=== PATIENT | female | born 1955 | race Caucasian/White ===

== ENCOUNTER 2016-10-15 18:30 | Inpatient (IN) | payer MEDICARE ==
[~2016-10-15] VITALS: Ht 165.1 cm; Wt 69.1 kg
[~2016-10-15 18:30] MED LIST: ANST1T PO; CITA10TA9 PO; Docusate Sodium PO; HYDR-656 PO; LEVO500T16 PO; LEVO75TA4 PO; METR500T PO; OXYC5TAB72 PO; PANT20TA2 PO; POTA20TA16 PO; QUET25TA73 PO; SENN176S PO
[2016-10-15 18:46] VITALS: BP 129/74; PULSE 115; RESP 24; O2SAT 98
[2016-10-15] MEDS ORDERED: 0.9% Sodium Chloride 1,000 ML IV ONE ×2 (19:36→21:15)
--- NOTE | 2016-10-15 19:36 | ED.REPORT ---
HPI-General Illness Date of Service Oct 15, 2016 ED Provider: Dr. Mina Welch D.O. A 61 year old female with an extensive medical history including active breast cancer on oral chemotherapy, Margie's thyroiditis with secondary encephalopathy, and hypertension presents to the ED with generalized myalgias onset four days ago. The patient also reports upper extremity joint pain, headache, chills, and fever (38.3 in ED). She denies diarrhea, vomiting, or dysuria. Her last chemotherapy appointment was one week ago. The patient was hospitalized for two weeks on 09/14/16 with a perforated colon where she underwent a left colon resection and end distal transverse colostomy. Nursing Notes Stated Complaint: JOINT/MUSCLE PAIN, FEVER/ HAD FREDDIE 1 WK AGO Chief Complaint: General Complaint Nursing Notes Reviewed: Yes Allergies: Coded Allergies: Contrast Media (Verified Allergy, Severe, Itching, 10/15/16) Oral Contrast Sulfa (Sulfonamide Antibiotics) (Verified Allergy, Unknown, HIVES, 10/15/16) zolpidem (Verified Allergy, Unknown, OTHER, 10/15/16) Scheduled Amlodipine (Amlodipine) 5 Mg Tablet 5 MG PO DAILY Anastrozole (Arimidex) 1 Mg Tablet 1 MG PO DAILY Levothyroxine (Levothyroxine) 75 Mcg Tablet 75 MCG PO DAILYAC Pantoprazole DR (Pantoprazole DR) 20 Mg Tablet.dr 20 MG PO DAILYAC Potassium Chloride ER (Potassium Chloride ER) 10 Meq Tablet 10 MEQ PO DAILY TAKE WITH FOOD Scheduled PRN hydrOXYzine Hcl (HydrOXYzine Hcl) 25 Mg Tablet 25 MG PO HS PRN PRN For Itching oxyCODONE (oxyCODONE) 5 Mg Tablet 2.5-5 MG PO Q4H PRN PRN FOR SEVERE PAIN Miscellaneous Medications Peg 3350/Na Sulf,Bicarb,Cl/KCl (Gavilyte-C Solution) 4,000 Ml Soln.recon 4,000 ML PO General Time Seen by MD: 19:35 Chief Complaint Other (Generalized Myalgias) Hx Obtained From: Patient Arrived By: Walk-in Onset Occurred: 4 days ago Symptom Duration: Since onset Location: : Abdomen: Arm left: Arm right: Back: Chest: Head Quality: Aching, Painful Severity: Current: Moderate Severity: Maximum: Moderate Associated with: Reports: Fever, Headache, Denies: Vomiting Pertinent Negative: Relieved by nothing Context Related History: Reports Cancer Recent Healthcare: Recent doctor visit, Recent hospitalization Past Medical History Past Medical History Hypothyroidism Diverticulitis. POD # 52 with ostomy that has pulled away from the skin into the subcutaneous tissues. Sepsis Embolic CVA Significant short-term memory loss Margie's thyroiditis with secondary encephalopathy several years Hypertension Breast cancer on oral chemotherapeutic 10/15/16 Peritonitis Perforated bowel Depression Anxiety Diastolic CHF Past Surgical History Left colon resection End distal transverse colostomy Smoking History Current Every Day Smoker Social History Alcohol Use: Denies alcohol use Other Social History: Good social support Ambulatory Status Independent Review of Systems Full Review of Systems Constitutional: Reports: Chills, Fever (38.3 in ED) GI: Denies: Diarrhea, Vomiting Female: Denies: Dysuria Musculoskeletal: Reports: Joint pain (Upper extremities), Myalgia (Generalized) Neurologic: Reports: Headache Complete sys rev & neg: except as marked. Physical Exam Vital Signs Vital Signs Date Time Temp Pulse Resp B/P Pulse Ox O2 Delivery O2 Flow Rate FiO2 10/16/16 01:34 37.9 111 33 143/44 99 Room Air 10/16/16 01:04 37.9 111 33 143/44 99 Room Air 10/15/16 23:30 39.4 122 26 145/72 91 Room Air 10/15/16 18:46 38.3 115 24 129/74 98 Room Air Initial VS: Reviewed Head / Eyes: Atraumatic, Normocephalic ENT: Conjunctiva normal, No scleral icterus Neck: Supple, Full range of motion Respiratory: Breath sounds normal, Clear to auscultation, No respiratory distress Skin: Warm, Dry, No cyanosis Neurologic: Alert, Oriented, Nonfocal General/Constitutional: Awake, Alert Behavior: Positive: Anxious Febrile Cardiovascular: Regular rhythm, Heart sounds NL Heart Rate / Rhythm: Positive: Tachycardia Interpretation & Diagnostics INFLUENZA NEGATIVE Lab Results Interpretation Result Diagram: 10/17/16 1110 10/17/16 1110 Test 10/15/16 19:30 10/15/16 20:40 10/16/16 00:44 10/16/16 01:25 Troponin T < 0.010ug/L (0.0-0.011) Pro-B-Type Natriuretic Peptide 454.0pg/mL (0-287) Lipase 11U/L (13-60) Procalcitonin 0.18ng/mL (0.00-0.08) Hold Brewer Top Tube Received (Received) Urine Color Yellow (YELLOW) Urine Appearance Clear (CLEAR,HAZY) Urine pH 6.0 (5.0-8.0) Urine Specific [place] 1.025 (1.003-1.035) Urine Protein Negativemg/dL (NEG,TRACE) Urine Glucose (UA) Negativemg/dL (NEGATIVE) Urine Ketones Negativemg/dL (NEGATIVE) Urine Occult Blood Negative (NEGATIVE) Urine Nitrite Negative (NEGATIVE) Urine Bilirubin Negative (NEGATIVE) Urine Urobilinogen Normalmg/dL (NORMAL) Urine Leukocyte Esterase Negative (NEGATIVE) Urine RBC 0-2/hpf (0-2) Urine WBC 0-5/hpf (0-5) Urine Epithelial Cells Occasional/hpf (NONE-MOD) Urine Crystals None seen (NONE SEEN) Urine Bacteria None/hpf (NONE-FEW) Urine Hyaline Casts None/lpf (NONE) Urine Granular Casts None seen (NONE SEEN) Urine Waxy Casts None seen (NONE SEEN) Urine Red Blood Cell Casts None seen (NONE SEEN) Urine White Blood Cell Casts None seen (NONE SEEN) Urine Mucus None seen (None Seen) Urine Trichomonas None seen (NONE SEEN) Urine Yeast None (NONE SEEN) Urinalysis Comment None Urine Culture Reflexed Not indicated Hold Urine Received (Received) Lactic Acid Level 0.8mmol/L (0.4-2.0) ECG Interpretation ECG Interpretation: Sinus tachycardia rate 104 Atrial premature complex Borderline repol abnormality, diffuse leads Time: 19:52 Interpreted by: ED physician X-Ray Chest Interpretation Chest Xray Interpretation: IMPRESSION: No acute cardiopulmonary disease process. Dictated by: Kimberley Diego MD, PhD on 10/15/2016 at 20:24 View: Portable, 1 view Interpretation / Wet Read by: Interpret - Radiologist CT Abd / Pelvis Interpretation CONCLUSION: Nonspecific enteritis affecting small bowel loops in the left abdomen with wall thickening and stranding. No bowel obstruction, perforation or abdominal pelvic abscess. Questionable appearance of the appendix with an appendicolith. Although this could be chronic, changes of an early appendicitis could appear similar. There were no comparison images or reports available to me at the time of this interpretation however if they do become available to me I will create an amendment to the report after comparison. Findings discussed w/ Dr. Welch at 10/15/16 11:17:42 PM PST Report transmitted to ED by Jordan Alas D.O at 10/15/16 - 11:21:08 PM [facility] Study type: Abdominal CT IV contrast, Abdom CT oral contrast Interpretation / Wet Read by: Interpret - Radiologist Re-Eval/Medical Decision Med Decision/Clinical Course 61-year-old complex medical patient presents with several days of joint pain and fever and rigors. She is undergoing immunotherapy so her oncologist recommended ER evaluation. On my evaluation she is febrile and tachycardic. She was a very poor historian secondary to memory loss. She was ill in appearance. I was concerned for a sepsis syndrome so we aggressively worked her up. She took care of her back in August when she had a perfect colon. Chest x-ray was negative for pneumonia. Urine analysis did not look infected. White blood cell count was normal. She was fluid resuscitated and symptomatically treated. She continued to be febrile having shaking chills. Went ahead and CT her abdomen due to her risk. There is mild nonspecific enteritis however there is also the possibility of early appendicitis. Perform serial examinations and pushed in her right lower quadrant several times and I could not elicit any tenderness. Medics exactly sure what is wrong with Cindy but I am certain she needs be admitted. I think it most appropriate that she be admitted to the medical team. I think were going to treat her with antibiotics and have surgical consultation. I did talk to Dr. Mota who concurs. I am going to treat her with IV Zosyn and fluids. I also spoke with her oncologist who agrees completely with the plan. Source of Hx: Old records Time of Eval: 21:12 Patient Status: Condition improved Re-Evaluation/Progress Note: Patient rechecked. Discussed plan for CT with patient. Time of Eval: 23:35 Patient Status: Condition improved Re-Evaluation/Progress Note: Patient rechecked. Time of Eval: 23:58 Patient Status: Condition improved Re-Evaluation/Progress Note: Discussed with patient CT, x-ray, and lab results, diagnosis, and plan for admit. Patient agrees with plan for care and all questions were addressed. Consultation #1: Referral / Consult Name: Brian Mota MD Consulted With: Surgeon Call Returned at: 23:42 [employer]ographic Press Set Up Operator: Will see patient, Agrees with eval, Agrees with plan Note: Will consult Consultation #2: Referral / Consult Name: Catrachito Muller MD Consulted With: Hospitalist Call Returned at: 23:49 [employer] Press Set Up Operator: Agrees with eval, Agrees with plan, Accepts admit Consultation #3: Consulted With: Ski Production Supervisor (And Oncologist) Call Returned at: 00:20 [employer] Press Set Up Operator: Agrees with eval, Agrees with plan Note: Dr. Neel Villalpando M.D. [phone] Counseled Regarding: Diagnosis, Lab results, Need for admission Discharge & Departure Primary Impression: Sepsis Sepsis type: sepsis due to unspecified organism Qualified Code: A41.9 - Sepsis, unspecified organism Additional Impressions: Enteritis Fever Fever type: unspecified Qualified Code: R50.9 - Fever, unspecified Tachycardia Disposition: ADMITTED TO HOSPITAL Discharge Condition All VS Reviewed: Yes Condition: Stable Referrals: [facility] (PCP) Scribe Attestation Portions of this note were transcribed by Denisse Spicer. I, Dr. Welch, personally performed the history, physical exam, and medical decision-making; I reviewed and confirmed the accuracy of the information in the transcribed note. Signed by: Jackie Damon, 10/16/2016, 00:57 copies to: [facility] Mina Welch DO Oct 15, 2016 19:36 DENISSE SPICER Oct 15, 2016 20:15 Time of Eval: 21:12 Patient Status: Condition improved Re-Evaluation/Progress Note: Patient rechecked. Discussed plan for CT with patient. Time of Eval: 23:35 Patient Status: Condition improved Re-Evaluation/Progress Note: Patient rechecked. Time of Eval: 23:58 Patient Status: Condition improved Re-Evaluation/Progress Note: Discussed with patient CT, x-ray, and lab results, diagnosis, and plan for admit. Patient agrees with plan for care and all questions were addressed. Consultation #1: Referral / Consult Name: Brian Mota MD Consulted With: Surgeon Call Returned at: 23:42 Flexographic Press Set Up Operator: Will see patient, Agrees with eval, Agrees with plan Note: Will consult Consultation #2: Referral / Consult Name: Catrachito Muller MD Consulted With: Hospitalist Call Returned at: 23:49 Flexographic Press Set Up Operator: Agrees with eval, Agrees with plan, Accepts admit Consultation #3: Consulted With: Ski Production Supervisor (And Oncologist) Call Returned at: 00:20 Flexographic Press Set Up Operator: Agrees with eval, Agrees with plan Note: Dr. Neel Villalpando M.D. [phone] Counseled Regarding: Diagnosis, Lab results, Need for admission Discharge & Departure Primary Impression: Sepsis Sepsis type: sepsis due to unspecified organism Qualified Code: A41.9 - Sepsis, unspecified organism Additional Impressions: Enteritis Fever Fever type: unspecified Qualified Code: R50.9 - Fever, unspecified Tachycardia Disposition: ADMITTED TO HOSPITAL Discharge Condition All VS Reviewed: Yes Condition: Stable Referrals: [facility] (PCP) Scribe Attestation Portions of this note were transcribed by Denisse Spicer. I, Dr. Welch, personally performed the history, physical exam, and medical decision-making; I reviewed and confirmed the accuracy of the information in the transcribed note. Signed by: Jackie Damon, 10/16/2016, 00:57 copies to: [facility] Mina Welch DO Oct 15, 2016 19:36 DENISSE SPICER Oct 15, 2016 20:15
[2016-10-15 19:46] LABS: BASOPHILS % (AUTO) 0.2 % (0-3); EOSINOPHILS % (AUTO) 3.8 % (0-5); MONOCYTES % (AUTO) 4.7 % (4-12); Mean Corpuscular Hemoglobin 30.1 pg (27.0-35.0); Mean Corpuscular Volume 92.5 fL (81-100); NEUTROPHILS % (AUTO) 80.9 % (40-74); Platelet Count 177 bil/L (150-400)
[2016-10-15] MEDS: HYDROmorphone 0.5 mg/0.5 mL iSecure Syringe IVPUSH PRN ×2 (20:14→21:35)
[2016-10-15] MEDS: Ondansetron 2 mg/mL 2 mL Inj IVPUSH PRN (20:14)
[2016-10-15 20:22] LABS: TROPONIN T < 0.010 ug/L (0.0-0.011)
--- NOTE | 2016-10-15 20:27 | DRSVH ---
PROCEDURE: X-RAY CHEST ONE VIEW, PORTABLE ([id number]) INDICATIONS: fever TECHNIQUE: One view of the chest was acquired. COMPARISON: [facility], CR, XR CHEST 1VW (PORTABLE), 08/20/2016, 5:47. [facility], CR, XR CHEST 1VW (PORTABLE), 08/16/2016, 4:12. [facility], CR, XR CHEST 1VW (POR TABLE), 08/22/2016, 9:11. FINDINGS: Surgical changes and devices: None. Lungs and pleura: No pleural effusions or pneumothorax. Lungs are clear of acute opacities. Scarrin g in the left lung base is unchanged. Mediastinum: Mediastinal contours appear normal. Heart size is normal. Bones and chest wall: Chronic left rib fractures are stable in appearance. No suspicious bony lesio ns. Overlying soft tissues appear unremarkable. IMPRESSION: No acute cardiopulmonary disease process. Dictated by: Kimberley Diego MD, PhD on 10/15/2016 at 20:24 Approved by: Kimberley Diego MD, PhD on 10/15/2016 at 20:25
[2016-10-15 20:55] LABS: APPEARANCE,URINE CLEAR (CLEAR,HAZY); COLOR,URINE YELLOW (YELLOW); OCCULT BLOOD,URINE NEGATIVE (NEGATIVE); UROBILINOGEN,URINE NORMAL (NORMAL)
[2016-10-15] MEDS ORDERED: Iohexol 300 mg/mL 30 mL Inj PO ONE (21:15)
[2016-10-15 23:30] VITALS: BP 145/72; PULSE 122; RESP 26; O2SAT 91
[2016-10-15] MEDS ORDERED: 0.9% Sodium Chloride 1,000 ML IV SCH (23:35)
[2016-10-16] VITALS (10 sets, daily range): BP systolic 94–150; BP diastolic 44–77; PULSE 86–116; RESP 18–40; O2SAT 92–100
[2016-10-16] MEDS: Ondansetron 2 mg/mL 2 mL Inj IVPUSH PRN (00:01)
[2016-10-16] MEDS: HYDROmorphone 0.5 mg/0.5 mL iSecure Syringe IVPUSH PRN (00:01)
[2016-10-16] MEDS ORDERED: Piperacillin-Tazo 3.375 Gm Inj 3.375 GM in Dextrose 5% Minibag Plus 50 ML IV SCH (00:30)
[2016-10-16] MEDS ORDERED: Polyethylene Glycol (PEG) 17 Gm Powder PO PRN (00:45)
[2016-10-16] MEDS ORDERED: Alum-Mag Hydrox-Simeth 30 mL Suspension PO PRN (00:45)
[2016-10-16] MEDS ORDERED: Ondansetron 2 mg/mL 2 mL Inj IVPUSH PRN (00:45)
--- NOTE | 2016-10-16 01:40 | PCM.HPMED ---
Subjective Date of Service Oct 16, 2016 Primary Provider: Admitting Physician: Primary Care Physician: [facility] Attending Physician: Chief Complaint: Myalgias History of Present Illness: Patient is a 61 year old female with a history of hypothyroidism, hypertension, and metastatic breast cancer. She presented to [facility] on 10/15/16 with her sister after about 4 days of joints aches and pains. At first the patient thought these were related to changes in the weather and more or less ignored them. Yesterday the patient had a low grade fever which became subjectively higher today. She denies chills, cough, sore throat, SOB, chest pain, nausea, vomiting, diarrhea, dysuria, hematuria, abdominal pain. She has had no increase in her usual level of fatigue. Her appetite is generally poor and has not been worse. Her last chemo session was October 08, 2016. She does not get neupogen after chemo on her current regimen. Myalgias can be an after affect of this chemo regimen but the oncologist thought it would be unusual for them to have continued this long. At the time of this H&P patient reports most significant pain in her jaw and face. In the ED the patient has a temperature of 38.3, heart rate 115, respiratory rate 24, blood pressure 129/74, and O2 saturation of 98% on room air. Labs were unremarkable. Patient has a history of bowel perforation so CT abd/pelvis done. Possible early appendicitis seen. IV antibiotics started as well as IV fluids. General surgery called and recommended admission. Will be admitted for further management. Review of Systems: A comprehensive review of systems was conducted with the patient and found to be negative except as above in the history of present illness. Allergies Coded Allergies: Contrast Media (Verified Allergy, Severe, Itching, 10/15/16) Oral Contrast Sulfa (Sulfonamide Antibiotics) (Verified Allergy, Unknown, HIVES, 10/15/16) zolpidem (Verified Allergy, Unknown, OTHER, 10/15/16) Home Medications Per patient's sister: Amlodipine 5 mg daily Levothyroxine 75 mcg daily Potassium 20 mEq daily Anastrazole 1 mg daily Other unverified medications at time of last discharge from [facility] (08/26/16): Aspirin 81 mg daily Quetiapine 12.5 mg HS Protonix 20 mg daily Oxycodone 5 mg Q4H PRN pain Citalopram 10 mg daily Hydroxyzine 25 mg HS PRN itching PMH Hypothyroidism with history of Margie's encephalitis. Diverticulitis status post emergent Jodie's procedure (March 2016). Embolic CVA. Encephalitis. Significant short-term memory loss. Hypertension. Right breast cancer undergoing neoadjuvant chemotherapy and pending right-sided breast surgery. Colon perforation August 2016. Surgical History Laparoscopic Jodie's procedure with end colostomy (March 2016) Tonsillectomy (childhood) Hysterectomy Family History Mother and sister with history of ovarian cancer Social History Hx Alcohol Use: Yes (2 glasses of wine per day.) Hx Substance Use: No Hx Tobacco Use: Yes Smoking Status: Former Smoker (Used off and on throughout life and quit again 15 months ago) Living Arrangement: with Family Exam Vital Signs Vital Sign - Last Date Time Temp Pulse Resp B/P Pulse Ox O2 Delivery O2 Flow Rate FiO2 10/15/16 23:30 39.4 122 26 145/72 91 Room Air Intake and Output 10/15/16 10/15/16 10/16/16 Cumulative From/Thru 15:00 23:00 07:00 10/15/16 18:46 - 10/15/16 23:47 Intake Total 1000 ml 2000 ml 3000 ml Balance 1000 ml 2000 ml 3000 ml Intake IV Total 1000 ml 2000 ml 3000 ml Exam Alert and oriented x3 to current situation, mild distress and discomfort; difficulty answering questions about last few days Head atraumatic, normocephalic PERRLA, EOMI, sclera anicteric Mucus membranes moist, no oral thrush observed; difficult to open mouth secondary to pain in jaw No cervical lymphadenopathy, neck supple, nontender No JVD noted Cardiac tones regular rate and rhythm with no murmur appreciated Lungs clear to auscultation bilaterally with adequate respiratory effort RLQ, suprapubic abdominal tenderness, non-distended, normoactive bowel tones, soft Holden present Radial pulses normal and equivalent bilaterally, dorsalis pedis pulses normal and equivalent bilaterally No cyanosis, clubbing or edema No ulcerations/open wounds Cranial nerves appear to be fully intact, normal speech, patient can move upper and lower limbs grossly Lab and Diagnostics Result Diagram: 10/15/16192910/15/161929 X-Rays, CTs and MRIs Chest x-ray: IMPRESSION: No acute cardiopulmonary disease process. Dictated by: Kimberley Diego MD, PhD on 10/15/2016 at 20:24 CT abd/pelvis: Conclusion: Non-specific enteritis affecting small bowel loops in left abdomen with wall thickening and stranding. No bowel obstruction, preparation or abdominal pelvic abscess. Questionable appearance of appendix with an appendicolith. Although this could be chronic, changes of an early appendicitis could appear similar. There were no comparison images or reports available to me at the time of this interpretation however if they do become available to me I will create an amendment to the report after comparison. Jordan Alas, DO 10/15/16 11:17PM Assessment & Plan Patient is a 61 year old female with a history of hypothyroidism, hypertension, and metastatic breast cancer. She presented to [facility] on 10/15/16 with her sister after about 4 days of joints aches and pains. CT abd/pelvis shows possible acute appendicitis. Patient to be admitted for IV ABX, fluids, and consultation with general surgery. 1. Possible acute appendicitis, present on admission. - Patient developing RLQ, suprapubic tenderness on exam. CT findings not conclusive. - General surgery consulted by ED and agree to see patient tomorrow. - Patient will be NPO for possible surgery. - Will defer DVT prophylaxis at this time in preparation for possible surgery. - Zosyn started in ED and will plan to continue at this time. 2. Sepsis, acute, present on admission. - Criteria met: fever (38.3), tachycardia (115), tachypnea (24), presumed GI source. - Procalcitonin and lactate ordered and pending. - Blood cultures ordered and pending. - IV NS 125 ml/hr started. - Antibiotics to treat underlying infection as above. - Continue to monitor CBC. 3. Myalgias, acute, present on admission. - Concern for possible influenza. - Rapid swab negative. Will order viral PCR to verify. - Will not plan to continue Tamiflu at this time as no other symptoms to confer influenza. - Will have Tylenol and hydromorphone 1 mg IV push available for pain control. 4. Hypothyroidism, chronic, presume stable. - Continue levothyroxine 75 mcg daily. 5. Right breast cancer, chronic, presume stable. - Continue anastrazole 1 mg daily (to be ordered by pharmacy as it could not be found as Taboola order). 6. Hypertension, chronic, presume stable. - Continue amlodipine 5 mg daily. 7. Medication reconciliation: - List given by patient's sister appears incomplete based on discharge note . - Please verify patient's medications tomorrow with her preferred pharmacy or ask bottles be brought in by the sister. - Antacid available PRN. - Antiemetic available PRN. - Bowel regimen available PRN. Patient admitted under inpatient status with expected length of stay greater than 2 midnights for severity of present symptoms, complexities of treatment plan and risk for adverse events. PCP Dr. Lyle ([facility]) Oncologist: Dr. Rojas VTE Prophylaxis: SCDs Resuscitation Status: CPR: Attempt Resuscitation Attending Statement The patient was seen and examined together with Dr. Blackwell on 10/15 and I agree with the history, exam and plan as outlined in the note above. Rula Blackwell DO Oct 16, 2016 01:18 Catrachito Muller MD Oct 16, 2016 02:10
[2016-10-16] MEDS: 0.9% Sodium Chloride 1,000 ML IV SCH ×4 (02:21→18:43)
[2016-10-16 03:35] LABS: BASOPHILS % (AUTO) 0.1 % (0-3); EOSINOPHILS % (AUTO) 0.5 % (0-5); MONOCYTES % (AUTO) 2.2 % (4-12); Mean Corpuscular Hemoglobin 30.4 pg (27.0-35.0); Mean Corpuscular Volume 92.7 fL (81-100); NEUTROPHILS % (AUTO) 91.6 % (40-74); Platelet Count 151 bil/L (150-400)
[2016-10-16] MEDS: HYDROmorphone 1 mg/mL Inj IVPUSH PRN ×7 (03:49→23:05)
[2016-10-16 03:52] LABS: Magnesium 1.4 mg/dL (1.6-2.6); Phosphorus 2.8 mg/dL (2.5-4.9)
[2016-10-16] MEDS ORDERED: Magnesium Sulf 2 Gm/50mL Water 2 GM in IV Premix 1 EACH IV ONE (04:50)
[2016-10-16] MEDS ORDERED: Potassium Chloride Inj 30 MEQ in Dextrose 5% 250 ML IV ONE (04:50)
--- NOTE | 2016-10-16 05:35 | NUR ---
Admit/Pain/Labs Pt admitted to room 2006 a little after 0200, pt had Zosyn infusing at the time and ordered NS fluids also started. Pt A&Ox3 and aware of situation but is very forgetful. Admission done mostly by mixture of recall from pt's recent admission and pt interview, pt is poor historian and family not in room at the time. Unable to do med rec as pt is unable to verify meds, states sister would have updated med list. Sister not in room at this time. Pt pleasant and conversing, stated pain was "getting better" when first arrived. Pt c/o pain mostly in arms and especially in hands. Later pt stated pain at 8/10, mostly in hands. Given PRN Dilaudid w/ good effect intermittently. Pt woke easily w/ care interventions, would repeat the same questions and statements and ask if she received anything for pain. Pt was reassured she had and after last intervention has been sleeping and appears comfortable. Potassium and Mag low this morning, MD ordered replacement, infusing now.
[2016-10-16] MEDS: Sodium Chloride LOK Flush 10 mL Syringe IVFLUSH SCH ×2 (08:14→16:30)
--- NOTE | 2016-10-16 08:44 | DRSVH ---
PROCEDURE: CT ABDOMEN AND PELVIS WITH CONTRAST ([id number]) INDICATIONS: fever, tachycardia, recent bowel perforation TECHNIQUE: After the administration of oral and intravenous contrast, 5 mm thick sections acquired from the diap hragms to the symphysis. 5 mm thick coronal and sagittal reformats were performed. For radiation do se reduction, the following was used: automated exposure control, adjustment of mA and/or kV accordi ng to patient size. COMPARISON: [facility], CT, CT ABD PELVIS W CON, 08/25/2016, 10:31. [facility], CT, CT ABD PELVIS W CON, 08/18/2016, 12:05. [facility], CT, CT ABD PELVIS W CON, , 20:24. FINDINGS: Image quality: Excellent. ABDOMEN: Lung bases: Mild bibasilar atelectasis versus scarring is present. Opacities have decreased compared to the prior examination. Heart size is normal. Solid organs: Small right and left hepatic lobe low density foci are unchanged Liver and spleen are otherwise normal in size and enhancement. Gallbladder demonstrates a high density focus within its l umen. Biliary system is non-dilated. Pancreas enhances normally. No adrenal nodules. Kidneys are n ormal in size and enhancement, without hydronephrosis. Peritoneum and bowel: Stomach is within normal limits. There is mild thickening and distention invol ving small bowel is within the left hemiabdomen, which is decreased. Surrounding fat stranding is dec reased. The appendix is mildly prominent in size, measuring 9 mm short axis. There is slightly increa sed fat stranding surrounding the tip of the appendix. There is an ovoid high density focus measuring 10 mm within the cecum and/or appendiceal base. Left midabdominal colostomy is present. No free flu id or air. Nodes and vessels: No retroperitoneal or mesenteric adenopathy. Aorta and inferior vena cava are no rmal in caliber. Miscellaneous: No ventral hernias. PELVIS: Genitourinary: Bladder wall thickness is normal. Miscellaneous: No inguinal hernias or adenopathy. Bones: No suspicious bony lesions. No vertebral body compression fractures. IMPRESSION: 1. Decreased inflammation/infection involving the left shana-abdominal small bowel loops. 2. Possible mild/early appendicitis, with an associated appendicolith versus high density focus withi n the adjacent cecum. Close clinical followup with repeat imaging, if clinically warranted, is recomm ended. 3. Cholelithiasis. 4. Concordant with preliminary interpretation. Dictated by: Jitendra Rebolledo M.D. on 10/16/2016 at 8:20 Approved by: Jitendra Rebolledo M.D. on 10/16/2016 at 8:43
[2016-10-16] MEDS: Piperacillin-Tazo 3.375 Gm Inj 3.375 GM in Dextrose 5% Minibag Plus 50 ML IV SCH ×2 (10:06→16:47)
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
[2016-10-16] MEDS ORDERED: [UNRECOGNIZED DRUG - CODE] PO (11:56)
[2016-10-16] MEDS ORDERED: POTA10TA12 PO (11:56)
[2016-10-16] MEDS ORDERED: AMLO5TAB2 PO (11:56)
--- NOTE | 2016-10-16 14:45 | PCM.PNMED ---
Subjective Date of Service Oct 16, 2016 Subjective She notes severe short-term memory loss. She believes she has had some abdominal pain. I cannot really quantify or locate where that is. She also notes diffuse hand and other joint pain which is chronic. She denies any shortness of breath, or cough. She has an ostomy. She cannot really say if outputs been normal or less than normal. Exam Vital Signs Vital Sign - Last Date Time Temp Pulse Resp B/P Pulse Ox O2 Delivery O2 Flow Rate FiO2 10/16/16 11:56 37.1 95 18 104/61 95 Nasal Cannula 1.00 Intake and Output 10/15/16 10/15/16 10/16/16 Cumulative From/Thru 15:00 23:00 07:00 10/15/16 18:46 - 10/16/16 06:46 Intake Total 1000 ml 2658 ml 3658 ml Output Total 1400 ml 1400 ml Balance 1000 ml 1258 ml 2258 ml Intake Oral 0 ml 0 ml IV Total 1000 ml 2658 ml 3658 ml Output Urine Total 1400 ml 1400 ml Stool Total 0 ml 0 ml Exam She has fluent speech somewhat anxious in appearance. No distress. Anicteric sclera. Neck supple Lungs are clear, normal effort. Heart is regular without murmur gallop or rub Abdomen is somewhat distended with a ostomy and some output. There is no tenderness. Extremities or face edema. Pedal pulses. Skin is free of rash or lesions IVs and Medications Medications Reviewed: Medications were reviewed in detail Lab and Diagnostics Result Diagram: 10/16/165 10/16/16 0315 X-Rays, CTs and MRIs Chest x-ray: IMPRESSION: No acute cardiopulmonary disease process. Dictated by: Kimberley Diego MD, PhD on 10/15/2016 at 20:24 CT abd/pelvis: Conclusion: Non-specific enteritis affecting small bowel loops in left abdomen with wall thickening and stranding. No bowel obstruction, preparation or abdominal pelvic abscess. Questionable appearance of appendix with an appendicolith. Although this could be chronic, changes of an early appendicitis could appear similar. There were no comparison images or reports available to me at the time of this interpretation however if they do become available to me I will create an amendment to the report after comparison. Jordan Alas DO 10/15/16 11:17PM Assessment & Plan Patient is a 61 year old female with a history of hypothyroidism, hypertension, and metastatic breast cancer. She presented to [facility] on 10/15/16 with her sister after about 4 days of joints aches and pains. CT abd/pelvis shows possible acute appendicitis. Patient to be admitted for IV ABX, fluids, and consultation with general surgery. 1. Possible acute appendicitis, present on admission. We will continue Zosyn. Dr. Galvan surgery is reviewing the case to see whether not she believes surgical intervention is indicated today. 2. Sepsis, acute, present on admission., Improved. - Criteria met: fever (38.3), tachycardia (115), tachypnea (24), presumed GI source. - Procalcitonin and lactate ordered and pending. - Blood cultures ordered and pending. - IV NS 125 ml/hr started. - Antibiotics to treat underlying infection as above. - Continue to monitor CBC. 3. Myalgias, acute, present on admission. She appears to have chronic muscle skeletal complaints. - Concern for possible influenza. - Rapid swab negative. Will order viral PCR to verify. This was negative. 4. Hypothyroidism, chronic, presume stable. - Continue levothyroxine 75 mcg daily. 5. Right breast cancer, chronic, presume stable. - Continue anastrazole 1 mg daily (to be ordered by pharmacy as it could not be found as [employer] order). 6. Hypertension, chronic, presume stable. - Continue amlodipine 5 mg daily. Patient admitted under inpatient status with expected length of stay greater than 2 midnights for severity of present symptoms, complexities of treatment plan and risk for adverse events. PCP Dr. Lyle ([facility]) Oncologist: Dr. Rojas Pain Evaluation: Adequate Pain Control VTE Prophylaxis: SCDs VTE Mechanical Devices: Intermittant Pneumatic CD Resuscitation Status: CPR: Attempt Resuscitation Time spent 25 minutes Rashid Osullivan MD Oct 16, 2016 14:45
--- NOTE | 2016-10-16 17:30 | NUR ---
Pain/EKG No reports of chest pain, however patient does report continual bilateral arm pain and upper back pain -- MD aware, EKG completed shows prolonged QT and QTc-- in chart. Tele sinus/tachy high 90s to low 100s No reports of SOB at rest. RR 30-40 depending on pain level which varies 6-10/10 (administering Dilaudid 1mg IV PRN Q2), No reports of SOB, 94% on RA. No reports of n/v/d/c, reports mild abdominal pain, increases with movement. Holden patent draining yellow urine to gravity. Patient is alert and oriented x3, HERRERA, reports full sensation significant short term memory loss at baseline. Needs frequent cueing and reminding. Sits at edge of bed 1PA, very weak.
--- NOTE | 2016-10-16 18:00 | PROG NOTE ---
[address] [address] PROGRESS NOTE PATIENT: ROHIT MEDEIROS : 1955 MR#: [id number] ADMIT: 10/16/2016 JOB ID: [id number] DATE: 10/16/2016 SURGICAL PROGRESS NOTE: SUBJECTIVE: This is a 61-year-old woman with a past surgical history as follows: In April she presented with diverticulitis and underwent an emergent sigmoid colectomy with end-colostomy. This was complicated by intubation and a prolonged ICU stay, and her hospitalization was approximately two months long. Her ostomy strictured and although she was discharged and was able to tolerate a regular diet, in August her left colon became obstructed from that stricture and perforated. She then underwent and an emergent exploratory laparotomy with resection of the left colon and distal transverse colostomy. She was treated with IV antibiotics and actually recovered without the need for additional procedural intervention. She was admitted to the hospital last night and her notes describe four days of joint aches and pains. The patient has always been a poor personal historian due to her history of encephalitis (at one point she could not remember if she is able to walk). She was admitted and put on antibiotics. A CT scan of the abdomen and pelvis showed possible, but not probable or obvious, acute appendicitis. I personally reviewed her CT scan of the abdomen and pelvis with the radiologist. Although the appendix it is somewhat larger in caliber compared to normal, there is no periappendiceal fat stranding. There is a small radiopaque density in the cecum, which could be an appendicolith, but is not obviously seen at the appendiceal orifice. There is no sign of perforation or phlegmon. OBJECTIVE: Temperature 37.2, heart rate 102, blood pressure 96/60, respiratory rate of 20, saturation 92% on room air. General: Awake, alert. Confused per her baseline. Abdomen: Soft. Mild diffuse tenderness, most prominent in the left lower quadrant, right lower quadrant, and right upper quadrant. There is no rebound or guarding. LABORATORY STUDIES: White blood cell count was 6.5 on admission and 8.5 this morning. Hematocrit is 34.2 and platelets are 151. Basic metabolic panel is within normal limits, with the exception of potassium 3.2 and calcium 7.9. Pro B-natriuretic peptide is elevated at 454. IMAGING PROCEDURE: A CT scan of the abdomen and pelvis: Images are as noted above. ASSESSMENT: A 61-year-old woman with abdominal pain and CT scan findings which are equivocal for acute appendicitis. This patient has had an extensive past surgical history with extreme difficulty recovering as noted on previous hospitalizations. Her CT scan findings are equivocal for appendicitis, but somewhat concerning. She has a normal white blood cell count. She is on antibiotics. She has been undergoing chemotherapy, which was most recently administered on October 08, 2016 per her history and physical today. RECOMMENDATIONS: Given all of the above findings, I recommend institution of IV antibiotics and observation. This case was also discussed with my on-call partner, Dr. Ellis, who will also be covering over the weekend. If she does not show signs of improvement, or if her clinical picture worsens, either repeat imaging or appendectomy without imaging may be considered. She is at a very increased risk of morbidity from an operation given her past medical and surgical history. All of this was also discussed with Dr. Rashid Osullivan, her hospitalist. I also attempted to contact her DPOA, Mimi, who is her sister, but was unable to get her on the phone. This patient will be followed by the surgical service while she is in the hospital.
[2016-10-17] VITALS (8 sets, daily range): BP systolic 102–140; BP diastolic 56–74; PULSE 81–101; RESP 18–36; O2SAT 94–97
[2016-10-17] MEDS: Piperacillin-Tazo 3.375 Gm Inj 3.375 GM in Dextrose 5% Minibag Plus 50 ML IV SCH ×4 (00:01→23:44)
[2016-10-17] MEDS: Sodium Chloride LOK Flush 10 mL Syringe IVFLUSH SCH ×3 (00:30→17:46)
[2016-10-17] MEDS: HYDROmorphone 1 mg/mL Inj IVPUSH PRN ×8 (01:10→22:44)
[2016-10-17] MEDS: 0.9% Sodium Chloride 1,000 ML IV SCH ×3 (03:30→23:44)
--- NOTE | 2016-10-17 05:16 | NUR ---
Pain/Colostomy/Labs/Tele Pt continues to report bilateral arm pain, especially in hands/fingers, also reported back pain, per pt "in her usual spots" which were generalized upper and lower back, pt reports back pain is chronic. Pt also intermittently reported abdominal pain, though denied any nausea. PRN Dilaudid and Tylenol given w/ good effect. Pt woke early in night and stated pain at 8-9/10, after a few doses of pain medicine per orders, pt most recently reported pain to be at a 3/10 and tolerable, also reported no stomach pain but rather irritation to skin around colostomy. Colostomy changed and skin cleaned as pt itched around it and pulled it off. PRN benadryl and lotion used for itching. Colostomy put out minimal output. K/Mag not rechecked since replacement yesterday. informed that no morning labs were ordered and pt is not on protocol. No new orders given at this time. No significant ectopy noted on telemetry. Pt NPO per orders, except for PO meds.
--- NOTE | 2016-10-17 09:02 | PCM.PNMED ---
Subjective Date of Service Oct 17, 2016 Subjective She is having diffuse joint pain which is normal for her. This includes neck back and hands. Her abdomen still hurts. No nausea or diarrhea. She did have a fever last night. No chills. No chest pain or palpitations. She has chronic short-term memory loss. Exam Vital Signs Vital Sign - Last Date Time Temp Pulse Resp B/P Pulse Ox O2 Delivery O2 Flow Rate FiO2 10/17/16 07:37 37.9 97 36 111/67 95 Room Air 10/16/16 11:56 1.00 Intake and Output 10/16/16 10/16/16 10/17/16 Cumulative From/Thru 15:00 23:00 07:00 10/15/16 18:46 - 10/17/16 06:44 Intake Total 1398 ml 1491 ml 6547 ml Output Total 700 ml 800 ml 2900 ml Balance 698 ml 691 ml 3647 ml Intake Oral 0 ml 0 ml 0 ml IV Total 1398 ml 1491 ml 6547 ml Output Urine Total 700 ml 800 ml 2900 ml Stool Total 0 ml Exam She is calm and has fluent speech no distress Anicteric sclera Lungs are clear normal effort and rate Heart is regular without murmur gallop or rub Abdomen is diffusely tender without guarding or rebound. Extremities are free of edema good pedal pulses IVs and Medications Medications Reviewed: Medications were reviewed in detail Lab and Diagnostics Result Diagram: 10/16/1631410/16/16314 X-Rays, CTs and MRIs Chest x-ray: IMPRESSION: No acute cardiopulmonary disease process. Dictated by: Kimberley Diego MD, PhD on 10/15/2016 at 20:24 CT abd/pelvis: Conclusion: Non-specific enteritis affecting small bowel loops in left abdomen with wall thickening and stranding. No bowel obstruction, preparation or abdominal pelvic abscess. Questionable appearance of appendix with an appendicolith. Although this could be chronic, changes of an early appendicitis could appear similar. There were no comparison images or reports available to me at the time of this interpretation however if they do become available to me I will create an amendment to the report after comparison. Jordan Alas, DO 10/15/16 11:17PM Assessment & Plan Patient is a 61 year old female with a history of hypothyroidism, hypertension, and metastatic breast cancer. She presented to [facility] on 10/15/16 with her sister after about 4 days of joints aches and pains. CT abd/pelvis shows possible acute appendicitis. Patient to be admitted for IV ABX, fluids, and consultation with general surgery. 1. Possible acute appendicitis, present on admission. We will continue Zosyn. Dr. Galvan elected not to go to the OR last night. She is having persistent abdominal pain and fever. We will recheck a white count this morning. I suspect she will likely need to go for appendectomy. We will make her nothing by mouth. 2. Sepsis, acute, present on admission., Improved. - Criteria met: fever (38.3), tachycardia (115), tachypnea (24), presumed GI source. Plan is as above 3. Myalgias, acute, present on admission. She appears to have chronic muscle skeletal complaints. Is likely relates to her abdominal process and chronic muscular skeletal issues. - Concern for possible influenza. - Rapid swab negative. Will order viral PCR to verify. This was negative. 4. Hypothyroidism, chronic, presume stable. - Continue levothyroxine 75 mcg daily. 5. Right breast cancer, chronic and metastatic, presume stable. - Continue anastrazole 1 mg daily (to be ordered by pharmacy as it could not be found as [employer] order). 6. Hypertension, chronic, presume stable. - Continue amlodipine 5 mg daily. Patient admitted under inpatient status with expected length of stay greater than 2 midnights for severity of present symptoms, complexities of treatment plan and risk for adverse events. PCP Dr. Lyle ([facility]) Oncologist: Dr. Rojas Pain Evaluation: Adequate Pain Control VTE Prophylaxis: SCDs VTE Mechanical Devices: Intermittant Pneumatic CD Resuscitation Status: CPR: Attempt Resuscitation Time spent 30 minutes Rashid Osullivan MD Oct 17, 2016 09:02
--- NOTE | 2016-10-17 09:33 | PCM.PNSURG ---
Subjective Date of Service: Oct 17, 2016 Visit Information: Reason for Visit Sepsis,Tachycardia,Fever Surgery/Surgery Date Post-Op Day # Date of Admission: Oct 16, 2016 at 01:48 Hospital Day #3 Subjective: Vague mild left upper quadrant abdominal pain that has improved significantly since admission. Denies right upper quadrant or right lower quadrant pain. Denies nausea or vomiting. Believes that she is drinking liquids without difficulty, relates history of short-term memory loss. Passing flatus but has not had a bowel movement. Ambulatory in the room. Postop General: Other (as above) Gastrointestinal: Good Appetite, Tolerating Oral Feedings, No N/V, Passing Flatus Pain Management: PO Postop Activity: Ambulating in Room Only Objective Vital Sign- Last 8 Hours Date Time Temp Pulse Resp B/P Pulse Ox O2 Delivery O2 Flow Rate FiO2 10/17/16 08:00 101 10/17/16 07:37 37.9 97 36 111/67 95 Room Air 10/17/16 04:49 98 10/17/16 04:22 37.1 89 18 102/58 94 Room Air Intake and Output- Last 8 Hour 10/17/16 Cumulative From/Thru 07:00 10/15/16 18:46 - 10/17/16 06:44 Intake Total 1491 ml 6547 ml Output Total 800 ml 2900 ml Balance 691 ml 3647 ml Intake Oral 0 ml 0 ml IV Total 1491 ml 6547 ml Output Urine Total 800 ml 2900 ml Stool Total 0 ml General: Alert, Cooperative, No Acute Distress, Anicteric Lungs: Clear to Auscultation Heart: Regular Rate/Rhythm Abdomen: Soft, Non-tender (negative Philippe's), Non-distended Neuro: Normal Speech Catheters: None Result Diagram: 10/16/1631410/16/16314 Lab & Micro Results: Lipase 11 on admission Assessment & Plan Impression Primary diagnosis: 1. Abdominal pain that seems to be resolving with antibiotics. 2. Significant short-term memory loss Other diagnoses: 1. Hypothyroidism with history of Margie's encephalitis. 2. Diverticulitis status post emergent Jodie's procedure (March 2016). 3. History of Embolic CVA. 4. History of Encephalitis. 5. Hypertension. 6. Right breast cancer undergoing neoadjuvant chemotherapy and pending right -sided breast surgery. 7. Colon perforation August 2016. 8. Former cigarette smoker Problems: Plan Surgery will continue to follow, but at this point it is unlikely that there is a intra-abdominal process requiring surgical intervention. Pain Management: Oral Tylenol VTE Prophylaxis: SCDs Resuscitation Status: CPR: Attempt Resuscitation Galen Manriquez PA-C Oct 17, 2016 09:33
[2016-10-17 11:20] LABS: Mean Corpuscular Hemoglobin 29.8 pg (27.0-35.0); Mean Corpuscular Volume 93.4 fL (81-100)
--- NOTE | 2016-10-17 18:01 | NUR ---
Pain/Ambulation/Itching/Colostomy Patient alert and oriented x3, HERRERA, significant short term memory loss at baseline. Patient continues to report bilateral arm pain/hand pain, well managed by 1mg IV Dilaudid PRN Q2, pain level reported mostly at tolerable levels throughout shift at 2-5/10. Administered PO 650 my tylenol x2. Patient up SBA/soft 1PA, tolerated well. Continues to report urge to void despite putting over 2000ml out of stovall. Continues to itch, lotion applied to all extremities x3, IV Benadryl administered x2. Patient had pure liquid brown stool out of colostomy, unable to measure because she tends to pull/roll up dressing and caused liquid stool to leave over abdomen -- full bed bath. Still NPO, NS at 125, stovall patent, RA, vital signs within normal limits.
[2016-10-18] VITALS (8 sets, daily range): BP systolic 102–147; BP diastolic 67–77; PULSE 90–106; RESP 20–28; O2SAT 96–100
[2016-10-18] MEDS: Sodium Chloride LOK Flush 10 mL Syringe IVFLUSH SCH ×3 (00:30→16:30)
[2016-10-18] MEDS: HYDROmorphone 1 mg/mL Inj IVPUSH PRN ×6 (03:18→22:11)
--- NOTE | 2016-10-18 06:15 | NUR ---
Pain /Tele / VSS Pt medicated for abdomen and hand pain during the night with IV Dilaudid 1 mg about every 2 hours with good relief of pain. Pt medicated X2 for itching with IV Benadryl 25mg every 6 hours. No c/o chest pain, Tele SR with PACs with HR 90s to low 100s. VS stable and afebrile.
[2016-10-18] MEDS: Piperacillin-Tazo 3.375 Gm Inj 3.375 GM in Dextrose 5% Minibag Plus 50 ML IV SCH ×2 (08:42→17:39)
[2016-10-18] MEDS: 0.9% Sodium Chloride 1,000 ML IV SCH ×3 (08:42→22:06)
[2016-10-18 09:42] LABS: Mean Corpuscular Hemoglobin 29.7 pg (27.0-35.0); Mean Corpuscular Volume 92.4 fL (81-100)
--- NOTE | 2016-10-18 10:07 | NUR ---
MARY JANE signature witnessed - MARCUS OteroSW
--- NOTE | 2016-10-18 10:08 | NUR ---
Social Work Note - Continued D.C plan SELLING MANAGER met with Cindy Mccoy - Pt states that she plans to return home with sister at d/c. She states she is not feeling better. MD identifies that surgery is consulted for possible Appendicitis. May remain in the hospital for 1-2 more days. SELLING MANAGER placed POA paperwork on chart. Plan: Home with sister in POV. GEETA Otero
--- NOTE | 2016-10-18 12:03 | PCM.PNMED ---
Subjective Date of Service Oct 18, 2016 Subjective She is doing a little bit better today. No fever. Less abdominal pain. She still has severe anorexia. No bowel movement. She is urinating without difficulty, no burning or blood. No shortness of breath. Exam Vital Signs Vital Sign - Last Date Time Temp Pulse Resp B/P Pulse Ox O2 Delivery O2 Flow Rate FiO2 10/18/16 10:10 98 10/18/16 08:38 36.9 28 132/74 97 Room Air 10/16/16 11:56 1.00 Intake and Output 10/17/16 10/17/16 10/18/16 Cumulative From/Thru 15:00 23:00 07:00 10/15/16 18:46 - 10/18/16 06:06 Intake Total 2050 ml 1576 ml 24698 ml Output Total 2500 ml 3150 ml 8550 ml Balance -450 ml -1574 ml 1623 ml Intake Oral 0 ml 0 ml 0 ml IV Total 2050 ml 1576 ml 48559 ml Output Urine Total 2500 ml 2800 ml 8200 ml Stool Total 350 ml 350 ml Exam She is doing well. She is in no acute distress, fluent speech. Neck supple breath lungs are clear normal effort and rate Heart is regular without murmur Abdomen is soft nontender with exception of very minor tenderness in the right lower quadrant without guarding or rebound. Extremities are free of edema good pedal pulses. Skin is free of rash or lesions. IVs and Medications Medications Reviewed: Medications were reviewed in detail Lab and Diagnostics Result Diagram: 10/18/16 0700 10/18/16 0700 X-Rays, CTs and MRIs Chest x-ray: IMPRESSION: No acute cardiopulmonary disease process. Dictated by: Kimberley Diego MD, PhD on 10/15/2016 at 20:24 CT abd/pelvis: Conclusion: Non-specific enteritis affecting small bowel loops in left abdomen with wall thickening and stranding. No bowel obstruction, preparation or abdominal pelvic abscess. Questionable appearance of appendix with an appendicolith. Although this could be chronic, changes of an early appendicitis could appear similar. There were no comparison images or reports available to me at the time of this interpretation however if they do become available to me I will create an amendment to the report after comparison. Jordan Alas DO 10/15/16 11:17PM Assessment & Plan Patient is a 61 year old female with a history of hypothyroidism, hypertension, and metastatic breast cancer. She presented to [facility] on 10/15/16 with her sister after about 4 days of joints aches and pains. CT abd/pelvis shows possible acute appendicitis. Patient to be admitted for IV ABX, fluids, and consultation with general surgery. 1. Possible acute appendicitis, present on admission. We will continue Zosyn. She is currently being treated with IV antibiotics and surgery has been deferred. We will give her a full liquid diet today and consider repeat imaging Thursday or Thursday. 2. Sepsis, acute, present on admission., Resolved. - Criteria met: fever (38.3), tachycardia (115), tachypnea (24), presumed GI source. Plan is as above 3. Myalgias, acute, present on admission. She appears to have chronic muscle skeletal complaints. Is likely relates to her abdominal process and chronic muscular skeletal issues. The symptoms are improving. 4. Hypothyroidism, chronic, presume stable. - Continue levothyroxine 75 mcg daily. 5. Right breast cancer, chronic and metastatic, presume stable. - Continue anastrazole 1 mg daily (to be ordered by pharmacy as it could not be found as [email or web address] order). 6. Hypertension, chronic, presume stable. - Continue amlodipine 5 mg daily. Patient admitted under inpatient status with expected length of stay greater than 2 midnights for severity of present symptoms, complexities of treatment plan and risk for adverse events. PCP Dr. Lyle ([facility]) Oncologist: Dr. Rojas Pain Evaluation: Adequate Pain Control VTE Prophylaxis: SCDs VTE Mechanical Devices: Intermittant Pneumatic CD Resuscitation Status: CPR: Attempt Resuscitation Time spent 30 minute Rashid Osullivan MD Oct 18, 2016 12:03
--- NOTE | 2016-10-18 13:20 | PROG NOTE ---
[address] [address] PROGRESS NOTE PATIENT: ROHIT MEDEIROS : 1955 MR#: [id number] ADMIT: 10/16/2016 JOB ID: [id number] DATE: 10/18/2016 SUBJECTIVE: The patient is seen for surgery in followup for her recent admission for possible acute appendicitis. OBJECTIVE: Over the last 24 hours the patient has remained afebrile. This morning she is hemodynamically normal with a heart rate of 96 beats per minute, blood pressure of 126/71, satting 97% on room air, with a respiratory of 22 breaths per minute. In general, she appears very comfortable. Her abdomen is soft, nondistended. Her ostomy is functioning well. She has mild tenderness to palpation of the right lower quadrant. LABORATORY: Her white blood cell count remains normal at 4.7. Her hematocrit is 33.9. Her creatinine is fine at 0.57. ASSESSMENT AND PLAN: This is a 61-year-old female with an extensive medical history, who was admitted for fevers and CT scanning somewhat equivocal for the possibility of early acute appendicitis. The patient seems to be doing very well this morning. She is actually the best I have ever seen her. It is not clear to me whether or not that was a true diagnosis of acute appendicitis. Regardless, at this point I think transition to oral antibiotics and continue this for a minimum of a total 7-10 day course of antibiotic coverage is prudent. From my standpoint, she could even go home today. She has maintained normal white blood cell count and feels fine. I doubt that interval appendectomy will be offered, but she could follow up with Dr. Galvan. At this point, I am going to sign off. Please call me if there are any questions or concerns.
[2016-10-18] MEDS ORDERED: KCl 40 mEq/D5W 500 mL 40 MEQ in IV Premix 1 EACH IV ONE (13:55)
--- NOTE | 2016-10-18 17:58 | NUR ---
Colostomy Patient's colostomy dressing was coming undone following a shower; sister at bedside also states she often picks at the dressing as it itches. Student nurse and instructor replaced the colostomy bag and dressing at 1730 on 10/18.The stoma was pink, moist, and shiny. The skin surrounding the stoma was intact without erythema. No drainage, aside from stool, noted.
[2016-10-19] VITALS (9 sets, daily range): BP systolic 128–152; BP diastolic 78–98; PULSE 85–99; RESP 16–20; O2SAT 96–98
[2016-10-19] MEDS: Sodium Chloride LOK Flush 10 mL Syringe IVFLUSH SCH ×3 (00:30→16:45)
[2016-10-19] MEDS: Piperacillin-Tazo 3.375 Gm Inj 3.375 GM in Dextrose 5% Minibag Plus 50 ML IV SCH ×3 (00:49→18:28)
[2016-10-19 02:59] LABS: Mean Corpuscular Hemoglobin 30.1 pg (27.0-35.0); Mean Corpuscular Volume 89.3 fL (81-100)
[2016-10-19] MEDS ORDERED: Potassium Chloride 20 mEq/15 mL Oral Soln(K 3 - 3.7 & Creat < 2) PO ONE (04:50)
--- NOTE | 2016-10-19 05:54 | NUR ---
Pain/Potassium/Mentation Pt c/o pain in arms and legs 04/23 x2 this shift. Administered 1mg Dilaudid x2 and effective, no further complaints. AM K+ was 3.0 and Pt is on K+ Mag replacement protocol, ordered 40mEq PO. Will recheck K+ in 4 hours. 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 Pt has book at side of bed that helps her to remember where she is. VSS and Tele SR
[2016-10-19] MEDS: HYDROmorphone 1 mg/mL Inj IVPUSH PRN (06:19)
--- NOTE | 2016-10-19 06:39 | NUR ---
Holden Pt c/o Holden bothering her and causing pain, DC'd Holden @ 0038 as no evidence was found to keep Holden in place.
[2016-10-19] MEDS: 0.9% Sodium Chloride 1,000 ML IV SCH (08:35)
--- NOTE | 2016-10-19 13:16 | PCM.PNMED ---
Subjective Date of Service Oct 19, 2016 Subjective She is improving. Much less abdominal pain. She still has pronounced anorexia. No fevers or chills. No cough, chest pain or dyspnea. Diarrhea. Exam Vital Signs Vital Sign - Last Date Time Temp Pulse Resp B/P Pulse Ox O2 Delivery O2 Flow Rate FiO2 10/19/16 11:49 36.9 85 20 152/90 97 Room Air 10/16/16 11:56 1.00 Intake and Output 10/18/16 10/18/16 10/19/16 Cumulative From/Thru 15:00 23:00 07:00 10/15/16 18:46 - 10/19/16 06:39 Intake Total 1804 ml 1786 ml 01736 ml Output Total 2825 ml 1375 ml 68894 ml Balance -1021 ml 411 ml 1013 ml Intake Oral 400 ml 500 ml 900 ml IV Total 1404 ml 1286 ml 01244 ml Output Urine Total 2750 ml 1200 ml 46368 ml Stool Total 75 ml 175 ml 600 ml Exam Alert oriented 3, fluent speech Anicteric sclerae. Neck supple. Lungs are clear with normal effort. Heart is regular without murmur. Abdomen is soft nontender, ostomy is in place. Extremities are free of edema with good pedal pulses. IVs and Medications Medications Reviewed: Medications were reviewed in detail Lab and Diagnostics Result Diagram: 10/19/16 0235 10/19/16 0921 X-Rays, CTs and MRIs Chest x-ray: IMPRESSION: No acute cardiopulmonary disease process. Dictated by: Kimberley Diego MD, PhD on 10/15/2016 at 20:24 CT abd/pelvis: Conclusion: Non-specific enteritis affecting small bowel loops in left abdomen with wall thickening and stranding. No bowel obstruction, preparation or abdominal pelvic abscess. Questionable appearance of appendix with an appendicolith. Although this could be chronic, changes of an early appendicitis could appear similar. There were no comparison images or reports available to me at the time of this interpretation however if they do become available to me I will create an amendment to the report after comparison. Jordan Alas, 10/15/16 11:17PM Assessment & Plan Patient is a 61 year old female with a history of hypothyroidism, hypertension, and metastatic breast cancer. She presented to [facility] on 10/15/16 with her sister after about 4 days of joints aches and pains. CT abd/pelvis shows possible acute appendicitis. Patient to be admitted for IV ABX, fluids, and consultation with general surgery. 1. Possible acute appendicitis, present on admission. Appreciate Dr. Ellis's note. We will continue IV antibiotics through tomorrow repeat CT scan of the abdomen. If this looks improved we will discuss briefly with Dr. Galvan and likely discharge the patient on oral antibiotics. 2. Sepsis, acute, present on admission., Resolved. - Criteria met: fever (38.3), tachycardia (115), tachypnea (24), presumed GI source. Plan is as above 3. Myalgias, acute, present on admission. She appears to have chronic muscle skeletal complaints. Is likely relates to her abdominal process and chronic muscular skeletal issues. The symptoms are resolved. 4. Hypothyroidism, chronic, presume stable. - Continue levothyroxine 75 mcg daily. 5. Right breast cancer, chronic and metastatic, presume stable. - Continue anastrazole 1 mg daily (to be ordered by pharmacy as it could not be found as [employer] order). 6. Hypertension, chronic, presume stable. - Continue amlodipine 5 mg daily. Patient admitted under inpatient status with expected length of stay greater than 2 midnights for severity of present symptoms, complexities of treatment plan and risk for adverse events. PCP Dr. Lyle ([facility]) Oncologist: Dr. Rojas Probable discharge tomorrow after CT scan if it is improved. Pain Evaluation: Adequate Pain Control VTE Prophylaxis: SCDs VTE Mechanical Devices: Intermittant Pneumatic CD Resuscitation Status: CPR: Attempt Resuscitation Time spent 20 minutes Rashid Osullivan MD Oct 19, 2016 13:16
--- NOTE | 2016-10-19 18:00 | NUR ---
Urine/IV Urine - She has been urinating consistently and well since her Holden was discontinued this morning about 0630 per director of operations support report. IV - She had a peripheral IV in her right hand today and kept complaining that it felt like she was being "stabbed with lots of little knives" at the site. The site was clean, dry, and intact, no redness, and it flushed well. Tried a hot pack , but it did not relieve her discomfort. Discontinued the IV intact. After one failed attempt to place on IV in her left forearm an IV was placed in her left AC. Once it was in she started complaining of it being even more painful and kept crying and whimpering. Called IV therapy who took it out and placed another one in her right forearm. So far, she is not complaining of discomfort or trying to pick at it. Care continues.
[2016-10-20] MEDS: Piperacillin-Tazo 3.375 Gm Inj 3.375 GM in Dextrose 5% Minibag Plus 50 ML IV SCH ×2 (00:14→10:50)
[2016-10-20] MEDS: Sodium Chloride LOK Flush 10 mL Syringe IVFLUSH SCH ×2 (00:25→08:30)
[2016-10-20 03:48] VITALS: BP 120/76; PULSE 89; RESP 18; O2SAT 97
[2016-10-20] MEDS: HYDROmorphone 1 mg/mL Inj IVPUSH PRN (05:06)
--- NOTE | 2016-10-20 05:35 | NUR ---
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 Pt received benadryl x2, tylenol x1, and dilaudid x1. The benadryl did not help with the pt's itching and did not help the pt sleep so lotion was applied to pt's skin. The lotion did not relieve the pt's itching skin. The pt did receive 1mg of dilaudid for generalized body pain and that seemed to help both the pain and the itching.
[2016-10-20 08:00] VITALS: PULSE 80
[2016-10-20 08:26] LABS: Mean Corpuscular Hemoglobin 29.7 pg (27.0-35.0); Mean Corpuscular Volume 88.7 fL (81-100)
[2016-10-20 10:23] VITALS: BP 144/83; PULSE 95; RESP 16; O2SAT 97
[2016-10-20 12:02] VITALS: PULSE 85
[2016-10-20 12:09] VITALS: BP 149/75; PULSE 87; RESP 20; O2SAT 97
--- NOTE | 2016-10-20 12:10 | NUR ---
CT Scan She left [facility] at 1150 via wheelchair to get an abdominal CT scan. Prior to leaving she drank contrast. Staff from CT noted that she had contrast listed as an allergy, but stated that she was well known to them and had received contrast multiple times without any events. She tolerated it well and returned at 1210. Care continues.
[2016-10-20] MEDS ORDERED: KCl 40 mEq/D5W 500 mL 40 MEQ in IV Premix 1 EACH IV ONE (12:35)
--- NOTE | 2016-10-20 13:16 | DRSVH ---
PROCEDURE: CT ABDOMEN AND PELVIS WITH CONTRAST ([id number]) INDICATIONS: abdomen pain TECHNIQUE: After the administration of oral and intravenous contrast, 5 mm thick sections acquired from the diap hragms to the symphysis. 5 mm thick coronal and sagittal reformats were performed. For radiation do se reduction, the following was used: automated exposure control, adjustment of mA and/or kV accordi ng to patient size. COMPARISON: [facility], CT, CT ABD PELVIS W CON, 08/18/2016, 12:05. [facility] [place], CT, CT CHEST ABD PELVIS W CON, 04/28/2016, 14:47. [facility], CT, CT ABD PELVIS W CO N, 08/25/2016, 10:31. [facility], CT, CT ABD PELVIS W CON, 05/08/2016, 19:41. [facility], CT, CT ABD PELVIS W CON, 10/15/2016, 22:30. FINDINGS: Image quality: Excellent. ABDOMEN: Lung bases: There is mild basilar atelectasis or pulmonary scar. Solid organs: Liver and spleen are normal in size and enhancement. Multiple subcentimeter low densit y foci are present throughout the liver which likely represent small hepatic cysts but are incomplete ly characterized. A probable 2 mm diameter gallstone is present within the gallbladder fundus. Biliar y system is non-dilated. Pancreas enhances normally. No adrenal nodules. Kidneys are normal in siz e and enhancement, without hydronephrosis. Peritoneum and bowel: The stomach and small bowel are decompressed. Patient is status post left hemic olectomy. A colostomy is present within the left midabdomen. The appendix measures 8 mm in diameter ( series 2, image 72). This is similar in appearance to the CT dated 08/18/[address] dated 08/25/16 . No discrete periappendiceal fluid. Nodes and vessels: No retroperitoneal or mesenteric adenopathy. Aorta and inferior vena cava are no rmal in caliber. Miscellaneous: No ventral hernias. PELVIS: Genitourinary: Bladder wall thickness is normal. Uterus is nonvisualized and is presumably surgical ly absent. Miscellaneous: No inguinal hernias or adenopathy. Bones: No suspicious bony lesions. No vertebral body compression fractures. IMPRESSION: 1. Mild appendiceal thickening unchaged when compared with the study dated 10/15/16 and the study dated 08/25/16. Given the chronicity of these findings, acute appendicitis is considered less likely. Jl tionally, there is no periappendiceal fat stranding or free fluid. No fecalith is visualized on the c urrent study. 2. No other findings to explain patient's abdominal pain. Dictated by: Radha Barfield M.D. on 10/20/2016 at 13:02 Approved by: Radha Barfield M.D. on 10/20/2016 at 13:14
[2016-10-20] MEDS ORDERED: AMOX-366 PO (13:44)
--- NOTE | 2016-10-20 13:44 | PCM.DIMED ---
Discharge Instructions Date of Service Oct 20, 2016 Dates of Hospitalization Oct 16, 2016 at 01:48 Discharge Diagnosis Discharge Diagnosis 1. Possible acute appendicitis, improved on antibiotics. 2. Low potassium. 3. Sepsis, acute, present on admission., Resolved. 4. Myalgias, improved. 5. Hypothyroidism. 6. Right breast cancer. 7. Hypertension. Test Results First CAT scan indicated possible inflammation of the appendix. Second CAT scan indicated probable no inflammation of the appendix. Diet No restrictions Activity No restrictions Call your provider Fever or Chills, Other (abdominal pain) Patient Instructions PCP in the next week Rashid Osullivan MD Oct 20, 2016 13:44
[2016-10-20] MEDS ORDERED: Potassium Chloride 20 mEq SR Tablet PO ONE (13:45)
--- NOTE | 2016-10-20 13:53 | PCM.DC.MED ---
Discharge Summary Date of Service Oct 20, 2016 Dates of Hospitalization Date of Hospital Admission Oct 16, 2016 at 01:48 Date of Discharge: Oct 20, 2016 Providers: Admitting Physician: Catrachito Muller MD Primary Care Physician: [facility] Attending Physician: Catrachito Muller MD Diagnosis at Time of Discharge Diagnosis at Time of Discharge 1. Possible acute appendicitis, improved on antibiotics. 2. Low potassium. 3. Sepsis, acute, present on admission., Resolved. 4. Myalgias, improved. 5. Hypothyroidism. 6. Right breast cancer. 7. Hypertension. Consultations Gen. surgery, Drs. Galvan and Caleb Procedures XRay, CTs & MRIs Chest x-ray: IMPRESSION: No acute cardiopulmonary disease process. Dictated by: Kimberley Diego MD, PhD on 10/15/2016 at 20:24 CT abd/pelvis: Conclusion: Non-specific enteritis affecting small bowel loops in left abdomen with wall thickening and stranding. No bowel obstruction, preparation or abdominal pelvic abscess. Questionable appearance of appendix with an appendicolith. Although this could be chronic, changes of an early appendicitis could appear similar. There were no comparison images or reports available to me at the time of this interpretation however if they do become available to me I will create an amendment to the report after comparison. Jordan Alas, DO 10/15/16 11:17PM Other Diagnostics Initial CT scan of abdomen admission indicated possible periappendiceal inflammation and appendicolith. There is also possible symmetric changes of the adjacent small bowel. CT scan on the day of discharge indicated no evidence of appendiceal inflammation, also there is no evidence of appendicolith. Brief History Patient is a 61 year old female with a history of hypothyroidism, hypertension, and metastatic breast cancer. She presented to [facility] on 10/15/16 with her sister after about 4 days of joints aches and pains. At first the patient thought these were related to changes in the weather and more or less ignored them. Yesterday the patient had a low grade fever which became subjectively higher today. She denies chills, cough, sore throat, SOB, chest pain, nausea, vomiting, diarrhea, dysuria, hematuria, abdominal pain. She has had no increase in her usual level of fatigue. Her appetite is generally poor and has not been worse. Her last chemo session was October 08, 2016. She does not get neupogen after chemo on her current regimen. Myalgias can be an after affect of this chemo regimen but the oncologist thought it would be unusual for them to have continued this long. At the time of this H&P patient reports most significant pain in her jaw and face. In the ED the patient has a temperature of 38.3, heart rate 115, respiratory rate 24, blood pressure 129/74, and O2 saturation of 98% on room air. Labs were unremarkable. Patient has a history of bowel perforation so CT abd/pelvis done. Possible early appendicitis seen. IV antibiotics started as well as IV fluids. General surgery called and recommended admission. Will be admitted for further management. Hospital Course Patient is a 61 year old female with a history of hypothyroidism, hypertension, and metastatic breast cancer. She presented to [facility] on 10/15/16 with her sister after about 4 days of joints aches and pains. CT abd/pelvis shows possible acute appendicitis. Patient to be admitted for IV ABX, fluids, and consultation with general surgery. 1. Possible acute appendicitis, present on admission. Appreciate Dr. Ellis's note. We will continue IV antibiotics through tomorrow repeat CT scan of the abdomen. If this looks improved we will discuss briefly with Dr. Galvan and likely discharge the patient on oral antibiotics. 2. Sepsis, acute, present on admission., Resolved. - Criteria met: fever (38.3), tachycardia (115), tachypnea (24), presumed GI source. Plan is as above 3. Myalgias, acute, present on admission. She appears to have chronic muscle skeletal complaints. Is likely relates to her abdominal process and chronic muscular skeletal issues. The symptoms are resolved. 4. Hypothyroidism, chronic, presume stable. - Continue levothyroxine 75 mcg daily. 5. Right breast cancer, chronic and metastatic, presume stable. - Continue anastrazole 1 mg daily (to be ordered by pharmacy as it could not be found as [facility] order). 6. Hypertension, chronic, presume stable. - Continue amlodipine 5 mg daily. Patient admitted under inpatient status with expected length of stay greater than 2 midnights for severity of present symptoms, complexities of treatment plan and risk for adverse events. PCP Dr. Lyle ([facility]) Oncologist: Dr. Rojas Hospital course, the patient was admitted for bowel pain. Her initial CT indicated possible appendicitis. She was started on IV Zosyn and seen by surgery. They decided to follow her clinically as they were 100% convinced of appendicitis. She was treated with IV antibiotics as well. The patient improved clinically. A repeat CT scan on the day of discharge indicated a normal appendix, no periappendiceal fluid or inflammatory changes. No appendicolith. She was felt to be stable for discharge on oral antibodies close follow-up. Exam Vital Signs (Last) Date Time Temp Pulse Resp B/P Pulse Ox O2 Delivery O2 Flow Rate FiO2 10/20/16 12:09 36.7 87 20 149/75 97 Room Air 10/16/16 11:56 1.00 Exam Regards no acute distress. Neck is supple. Lungs. Normal effort. Heart is regular without murmur gallop or rub. Abdomen soft nontender. Normal bowel tones, ostomy Extremities are free of edema and good pedal pulses. Test 10/15/16 19:30 10/15/16 20:40 10/16/16 00:44 10/16/16 01:25 Troponin T < 0.010ug/L (0.0-0.011) Pro-B-Type Natriuretic Peptide 454.0pg/mL (0-287) Lipase 11U/L (13-60) Procalcitonin 0.18ng/mL (0.00-0.08) Hold Brewer Top Tube Received (Received) Urine Color Yellow (YELLOW) Urine Appearance Clear (CLEAR,HAZY) Urine pH 6.0 (5.0-8.0) Urine Specific [place] 1.025 (1.003-1.035) Urine Protein Negativemg/dL (NEG,TRACE) Urine Glucose (UA) Negativemg/dL (NEGATIVE) Urine Ketones Negativemg/dL (NEGATIVE) Urine Occult Blood Negative (NEGATIVE) Urine Nitrite Negative (NEGATIVE) Urine Bilirubin Negative (NEGATIVE) Urine Urobilinogen Normalmg/dL (NORMAL) Urine Leukocyte Esterase Negative (NEGATIVE) Urine RBC 0-2/hpf (0-2) Urine WBC 0-5/hpf (0-5) Urine Epithelial Cells Occasional/hpf (NONE-MOD) Urine Crystals None seen (NONE SEEN) Urine Bacteria None/hpf (NONE-FEW) Urine Hyaline Casts None/lpf (NONE) Urine Granular Casts None seen (NONE SEEN) Urine Waxy Casts None seen (NONE SEEN) Urine Red Blood Cell Casts None seen (NONE SEEN) Urine White Blood Cell Casts None seen (NONE SEEN) Urine Mucus None seen (None Seen) Urine Trichomonas None seen (NONE SEEN) Urine Yeast None (NONE SEEN) Urinalysis Comment None Urine Culture Reflexed Not indicated Hold Urine Received (Received) Lactic Acid Level 0.8mmol/L (0.4-2.0) Test 10/16/16 03:15 10/20/16 08:03 Neutrophils (%) (Auto) 91.6% (40-74) Lymphocytes (%) (Auto) 5.5% (14-46) Monocytes (%) (Auto) 2.2% (4-12) Eosinophils (%) (Auto) 0.5% (0-5) Basophils (%) (Auto) 0.1% (0-3) Phosphorus Level 2.8mg/dL (2.5-4.9) Magnesium Level 1.4mg/dL (1.6-2.6) White Blood Count 3.4th/mm3 (3.8-10.1) Red Blood Count 4.08mil/mm3 (3.90-5.20) Hemoglobin 12.1g/dL (12.0-15.6) Hematocrit 36.2% (35.0-46.0) Mean Corpuscular Volume 88.7fL (81-100) Mean Corpuscular Hemoglobin 29.7pg (27.0-35.0) Mean Corpuscular Hemoglobin Concent 33.4% (32.0-37.0) Red Cell Distribution Width 12.3% (12.3-15.4) Platelet Count 213bil/L (150-400) Sodium Level 141mEq/L (134-144) Potassium Level 3.0mEq/L (3.5-5.2) Chloride Level 100mEq/L (97-108) Carbon Dioxide Level 26mmol/L (18-29) Blood Urea Nitrogen 3mg/dL (8-27) Creatinine 0.50mg/dL (0.57-1.00) Estimat Glomerular Filtration Rate 180mL/min (>59) Glucose Level 97mg/dL (60-99) Calcium Level 9.1mg/dL (8.5-10.1) Total Bilirubin 0.3mg/dL (0.0-1.2) Aspartate Amino Transf (AST/SGOT) 8U/L (0-50) Alanine Aminotransferase (ALT/SGPT) 5U/L (0-32) Alkaline Phosphatase 66U/L (25-165) Total Protein 6.2g/dL (6.4-8.4) Albumin 3.4g/dL (3.4-5.0) Microbiology Results Negative blood cultures, and acute respiratory PCR. Discharge Medications Discharge Medications Amlodipine (Amlodipine) 5 Mg Tablet 5 MG PO DAILY (Reported) Amoxicillin/Clav K 875-125 mg (Augmentin 875-125 mg) 1 Each Tablet 1 TABLET PO BID Prescribed by: RASHID OSULLIVAN MD Anastrozole (Arimidex) 1 Mg Tablet 1 MG PO DAILY Prescribed by: SHAY RUTLEDGE MD Levothyroxine (Levothyroxine) 75 Mcg Tablet 75 MCG PO DAILYAC Prescribed by: DEEPAK AARON MD Pantoprazole DR (Pantoprazole DR) 20 Mg Tablet.dr 20 MG PO DAILYAC Prescribed by: DEEPAK AARON MD Potassium Chloride ER (Potassium Chloride ER) 10 Meq Tablet 10 MEQ PO DAILY ( Reported) TAKE WITH FOOD As needed hydrOXYzine Hcl (HydrOXYzine Hcl) 25 Mg Tablet 25 MG PO HS PRN PRN For Itching Prescribed by: DEEPAK AARON MD oxyCODONE (oxyCODONE) 5 Mg Tablet 2.5-5 MG PO Q4H PRN PRN FOR SEVERE PAIN Prescribed by: SHAY RUTLEDGE MD Miscellaneous Medications Peg 3350/Na Sulf,Bicarb,Cl/KCl (Gavilyte-C Solution) 4,000 Ml Soln.recon 4,000 ML PO (Reported) Followup Plan Disposition: Home Discharge Diet: No restrictions Discharge Activity: No restrictions Patient Instructions PCP in the next week (Dr Lyle) Time spent 35 minutes Rashid Osullivan MD Oct 20, 2016 13:53
--- NOTE | 2016-10-20 15:51 | NUR ---
Discharge She discharged at 1545 with her sister to drive her home. Discussed discharge instructions and gave the paperwork to the sister (instructions, care notes, and hard copy prescription). Her IV and telemetry was discontinued intact. She had no complaints at discharge and thanked the staff for their care.
== END 2016-10-20 15:48 | disposition home or self-care (01) | DRG 872 ==
LOC: SED 18:30 → PCC 10-16 01:48
PROVIDERS: ADMIT Hospitalist; ATTEND Hospitalist
DX: A41.9 Sepsis, unspecified organism (principal); K35.80 Unspecified acute appendicitis; C50.911 Malignant neoplasm of unspecified site of right female breast; R63.0 Anorexia; M79.1 Myalgia; E03.9 Hypothyroidism, unspecified; I10 Essential (primary) hypertension; Z86.73 Personal history of transient ischemic attack (TIA), and cerebral infarction without residual deficits